=== PATIENT | female | born 1955 | race African-American/Black ===

== ENCOUNTER 2020-08-04 08:38 | Inpatient (IN) | payer MEDICARE, BC ==
[~2020-08-04] VITALS: Ht 162.6 cm; Wt 68.0 kg
[2020-08-04 08:49] VITALS: BP 137/62
[2020-08-04] MEDS ORDERED: ONDANSETRON PF 4 MG/2 ML VIAL. IVP PRN (10:30)
[2020-08-04] MEDS: IV NORMAL SALINE 1000ML BAG 1,000 ML IV SCH ×2 (10:30→23:13)
--- NOTE | 2020-08-04 10:38 | HP ---
ADMIT DATE: 08/04/2020 HISTORY OF PRESENT ILLNESS: The patient is a 65-year-old -[place] female patient, who presented to the Emergency Room with complaint of pain mostly in the right lower quadrant that started last Wednesday, sharp in nature, relatively constant. Denied any nausea or vomiting. Did have bowel movement just before she arrived to the Emergency Room. Denied any chills, rigors or fever. Has never had any complaint like this before. She denied any dysuria, frequency, or hematuria and she was extensively investigated in the Emergency Room of [facility] and has had lab work, which included a CBC and CMP, urinalysis was essentially unremarkable; however, CT scan of the abdomen and pelvis showed that the patient has dilatation and stasis at the distal small bowel at the lower abdomen leading up to the ileocecal junction. No discrete transition point is evident. Findings are suggestive of low-grade small bowel obstruction. Apparently, her appendix seems to be normal; however, her liver, gallbladder, spleen, pancreas, adrenal glands and left kidney is unremarkable. She has diffuse irregular wall cystic density of 16 units, 2 cm fatty umbilical abdominal wall hernia, scattered colonic diverticulosis. Therefore, the patient was transferred to [facility], kept n.p.o. and consulted the Surgical team for further evaluation and treatment. PAST MEDICAL HISTORY: Significant for hypertension. PAST SURGICAL HISTORY: Significant for total abdominal hysterectomy and bilateral salpingo-oophorectomy. 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 ALLERGIES: No known drug allergies. MEDICATIONS: She is currently on no medication. FAMILY HISTORY: Her sister at the age of 70 in the alf due to COVID-19 infection. Her brother at age of 40 because of massive myocardial infarction. Both parents in early 50s. Her mother because of ovarian cancer. Does not know the cause of of her father. SOCIAL HISTORY: She is , has 2 sons. She never smoked. Does not drink alcohol or use any recreational drugs. She is retired after working for 38 years for the [employer]. REVIEW OF SYSTEMS: As per history of present illness. PHYSICAL EXAMINATION: GENERAL: On arrival to the Emergency Room, she looked well and was clearly in no apparent respiratory distress, slightly pale, but no jaundice, cyanosis or thyromegaly. No jugular venous distention. No lower limb edema. VITAL SIGNS: Her heart rate was 65, blood pressure was 166/89. Her temperature was 98.2, respiratory rate was 20, and oxygen saturation was 99% on room air. HEAD, EYES, EARS, NOSE AND THROAT: Showed normocephalic, atraumatic. NECK: Supple. HEART: Normal first and second heart sounds. No gallop, rub or murmur. CHEST: Clear to auscultation. No crepitation or rhonchi. ABDOMEN: Slightly distended, soft with tenderness mostly in the right lower quadrant. NEUROLOGIC: She was awake, alert, responding appropriately. All cranial nerves intact. EXTREMITIES: She moves extremities without difficulty. LABORATORY WORK: Showed that her white cell count was 3700; hemoglobin 12.9; hematocrit 38; MCV 83; and platelet count of 128,000. Serum sodium was 138, potassium 3.7, chloride 100, bicarbonate 25, anion gap of 17, BUN of 27, creatinine 0.9, estimated GFR was 86 mL per minute. Her glucose was 97, calcium was 9.3. Her total bilirubin, AST, ALT, alkaline phosphatase were normal. Total protein 7.1, albumin was 3.8. The patient was given IV morphine, started on IV antibiotic and was transferred to [facility], kept n.p.o., continued on IV fluids, IV pain management and antiemetic. We will consult the Surgical team. FOREIGN HUNT MD DR: RADHA/caron JOB#: [id number] / [id number]
[2020-08-04 10:42] VITALS: BP 144/64
[2020-08-04] MEDS: MORPHINE SULFATE 4 MG/ML VIAL. IV PRN ×2 (13:53→23:18)
--- NOTE | 2020-08-04 14:16 | PDOC2 ---
CONSULT Date of Consult Date of Consult DATE: 08/04/20 TIME: 14:12 Reason for Consult Reason for Consult: SBO Referring Physician Referring Physician: Dr. Ceron Identification/Chief Complaint Chief Complaint abd pain Source Source: Chart review, Patient History of Present Illness Reason for Visit: 65 yo F with c/o abd pain, causing insomnia. She came in for medical care and received pain meds. She is seen in hospital room and reports doing well. She denies N/V or abd pain. No flatus or stools. No previous similar symptoms and reports normal frequent stools secondary to fiber. She does not have an NGT. Past Medical History Cardiovascular: HTN Past Surgical History Past Surgical History: Hysterectomy, Other (lymph node biopsy) Family History Family History: No Significant Social History No ALCOHOL: none Current Medications Current Medications Current Medications Morphine Sulfate (Morphine Sulfate) 4 mg Q4H PRN IV PAIN Last administered on 08/04/20at 13:53; Start 08/04/20 at 10:30 Ondansetron HCl (Zofran) 4 mg Q4H PRN IVP NAUSEA/VOMITING; Start 08/04/20 at 10:30 Sodium Chloride 1,000 ml @ 100 mls/hr Q10H IV Last administered on 08/04/20at 10:30; Start 08/04/20 at 10:30 Allergies Allergies: Coded Allergies: No Known Drug Allergies (Unverified , 08/04/20) Physical Exam General: Alert, Oriented X3, Cooperative, No acute distress HEENT: Atraumatic Lungs: Normal air movement Abdomen: Soft, No tenderness Extremities: No clubbing, No cyanosis Neuro: Normal speech, Sensation intact Psych/Mental Status: Mental status NL, Mood NL Vitals VITALS Vital Signs Date Time Temp Pulse Resp B/P (MAP) Pulse Ox O2 Delivery O2 Flow Rate FiO2 08/04/20 13:53 16 Room Air 08/04/20 10:42 98.3 66 144/64 (90) 98 98.[address] c/w SBO Assessment/Plan Assessment/Plan SBO, appears to be resolving will maintain bowel rest and check KUB in AM. Thanks for consult! MANJINDER THOMASON MD Aug 04, 2020 14:16
[2020-08-04 14:27] VITALS: BP 136/63
[2020-08-04 19:00] VITALS: BP 140/68
[2020-08-04 23:12] VITALS: BP 140/65
[2020-08-05 03:12] VITALS: BP 138/66
[2020-08-05 07:29] VITALS: BP 146/68
[2020-08-05 07:41] LABS: HEMATOCRIT 35.3 % (36.0-47.0); HEMOGLOBIN 11.5 g/dL (12.0-15.5); RED BLOOD COUNT 4.31 x10^6/uL (3.50-5.40); WHITE BLOOD COUNT 2.8 x10^3/uL (4.0-11.0)
[2020-08-05 08:04] LABS: ALBUMIN 3.2 g/dL (3.4-5.0); CALCIUM 8.7 mg/dL (8.5-10.1); CREATININE 0.7 mg/dL (0.6-1.0); GFR 101.3; POTASSIUM 3.9 mmol/L (3.5-5.1); TOTAL BILIRUBIN 0.8 mg/dL (0.2-1.0); TOTAL PROTEIN 6.5 g/dL (6.4-8.2)
[2020-08-05] MEDS: IV NORMAL SALINE 1000ML BAG 1,000 ML IV SCH ×2 (08:44→16:23)
--- NOTE | 2020-08-05 09:58 | NUR ---
SW following. Discussed with RN, pt from home alone, room air, NPO, gets around fine. Bowel rest - obstruction appears to be resolving. RN advised no SW needs at this time. SW will continue to follow.
[2020-08-05 10:44] VITALS: BP 164/66
--- NOTE | 2020-08-05 10:56 | PN ---
DATE: 08/05/2020 SUBJECTIVE: The patient is resting, slightly propped up in bed, in no apparent distress. She is awake, alert, complaining of pain in the right lower quadrant that she rated about 4/10 in severity. She did have an episode of some nausea, but no vomiting. OBJECTIVE: GENERAL: When I examined her, she looked well and was clearly in no apparent respiratory distress. No pallor, jaundice, cyanosis or thyromegaly. No jugular venous distention. No lower limb edema. VITAL SIGNS: Her heart rate was 65, blood pressure was 146/68, temperature was 98.3, respiratory rate was 18 and oxygen saturation was 98%. HEAD, EYES, EARS, NOSE, AND THROAT: Showed normocephalic, atraumatic. NECK: Supple. HEART: Showed normal first and second heart sounds. No gallop or murmur. CHEST: Clear to auscultation. No crepitation or rhonchi. ABDOMEN: Distended. Tenderness mostly in the right lower quadrant. There is no guarding or rigidity. No organomegaly. All hernial orifice intact. Bowel sounds normal. NEUROLOGIC: She was grossly intact. Her intake and output are incompletely recorded. LABORATORY DATA: Her lab work this morning showed a white cell count of 2800; hemoglobin 11.5; hematocrit 35; MCV 82 and platelet count of 115,000. Serum sodium was 142, potassium 3.9, chloride 106, bicarbonate 28, anion gap of 8, BUN 13, creatinine 0.7, estimated GFR was 101, glucose 77, calcium was 8.7. Total bilirubin, AST, ALT, alkaline phosphatase were normal. Total protein 6.5, albumin was 3.2. ASSESSMENT: Small bowel obstruction, apparently resolving. She has had the KUB done, the result of which is still pending at the time of this dictation. FOREIGN HUNT MD DR: RADHA/caron JOB#: [id number] / [id number]
--- NOTE | 2020-08-05 11:36 | PDOC ---
[facility] 08/05/20 1136: SURGICAL PROGRESS NOTE DATE: 08/05/20 TIME: 11:35 Subjective right flank pain, is improved but still there no n/v no flatus Vital Signs Vital Signs Date Time Temp Pulse Resp B/P (MAP) Pulse Ox O2 Delivery O2 Flow Rate FiO2 08/05/20 10:44 98.4 59 18 164/66 (98) 98 Room Air 98.4 I&O Intake and Output 08/05/20 07:00 Intake Total 3073 ml Balance 3073 ml Intake IV Total 3073 ml # Voids 1 General: Alert, Oriented X3, Cooperative Abdomen: Soft, Other (mild ttp rlq) Labs Laboratory Tests Test 08/05/20 06:30 White Blood Count 2.8 x10^3/uL (4.0-11.0) Red Blood Count 4.31 x10^6/uL (3.50-5.40) Hemoglobin 11.5 g/dL (12.0-15.5) Hematocrit 35.3 % (36.0-47.0) Mean Corpuscular Volume 82 fL (79-100) Mean Corpuscular Hemoglobin 27 pg (25-35) Mean Corpuscular Hemoglobin Concent 33 g/dL (31-37) Red Cell Distribution Width 16.0 % (11.5-14.5) Platelet Count 115 x10^3/uL (140-400) Sodium Level 142 mmol/L (136-145) Potassium Level 3.9 mmol/L (3.5-5.1) Chloride Level 106 mmol/L (98-107) Carbon Dioxide Level 28 mmol/L (21-32) Anion Gap 8 (6-14) Blood Urea Nitrogen 13 mg/dL (7-20) Creatinine 0.7 mg/dL (0.6-1.0) Estimated GFR (Cockcroft-Gault) 101.3 BUN/Creatinine Ratio 19 (6-20) Glucose Level 77 mg/dL (70-99) Calcium Level 8.7 mg/dL (8.5-10.1) Total Bilirubin 0.8 mg/dL (0.2-1.0) Aspartate Amino Transf (AST/SGOT) 16 U/L (15-37) Alanine Aminotransferase (ALT/SGPT) 31 U/L (14-59) Alkaline Phosphatase 87 U/L (46-116) Total Protein 6.5 g/dL (6.4-8.2) Albumin 3.2 g/dL (3.4-5.0) Albumin/Globulin Ratio 1.0 (1.0-1.7) Laboratory Tests Test 08/05/20 06:30 White Blood Count 2.8 x10^3/uL (4.0-11.0) Red Blood Count 4.31 x10^6/uL (3.50-5.40) Hemoglobin 11.5 g/dL (12.0-15.5) Hematocrit 35.3 % (36.0-47.0) Mean Corpuscular Volume 82 fL (79-100) Mean Corpuscular Hemoglobin 27 pg (25-35) Mean Corpuscular Hemoglobin Concent 33 g/dL (31-37) Red Cell Distribution Width 16.0 % (11.5-14.5) Platelet Count 115 x10^3/uL (140-400) Sodium Level 142 mmol/L (136-145) Potassium Level 3.9 mmol/L (3.5-5.1) Chloride Level 106 mmol/L (98-107) Carbon Dioxide Level 28 mmol/L (21-32) Anion Gap 8 (6-14) Blood Urea Nitrogen 13 mg/dL (7-20) Creatinine 0.7 mg/dL (0.6-1.0) Estimated GFR (Cockcroft-Gault) 101.3 BUN/Creatinine Ratio 19 (6-20) Glucose Level 77 mg/dL (70-99) Calcium Level 8.7 mg/dL (8.5-10.1) Total Bilirubin 0.8 mg/dL (0.2-1.0) Aspartate Amino Transf (AST/SGOT) 16 U/L (15-37) Alanine Aminotransferase (ALT/SGPT) 31 U/L (14-59) Alkaline Phosphatase 87 U/L (46-116) Total Protein 6.5 g/dL (6.4-8.2) Albumin 3.2 g/dL (3.4-5.0) Albumin/Globulin Ratio 1.0 (1.0-1.7) Assessment/Plan sbo await imaging Justicifation of Admission Dx: Justifications for Admission: Justification of Admission Dx: Yes Comments: sbo MANJINDER THOMASON MD 08/05/20 1718: SURGICAL PROGRESS NOTE Assessment/Plan Pt seen and examined. Agree with Ms. Price's note Pt feels better, some right flank pain no N/V, no flatus or stool KUB with no SBO, some constipation will ADAT and start laxatives. Possible d/c in AM if continued improvement. KATHERINE PRICE APRN Aug 05, 2020 11:36 MANJINDER THOMASON MD Aug 05, 2020 17:18
[2020-08-05] MEDS: MORPHINE SULFATE 4 MG/ML VIAL. IV PRN (12:47)
--- NOTE | 2020-08-05 13:51 | RAD ---
XR ABDOMEN 2V INDICATION: Reason: SBO / Spl. Instructions: / History: . COMPARISON: CT 08/04/2019. TECHNIQUE: Supine and upright views of the abdomen were obtained. FINDINGS: No gaseous dilatation of small bowel. No free air. Lower chest demonstrates no acute abnormality. No acute osseous abnormality. IMPRESSION: No gaseous dilatation of small bowel. Moderate colonic stool burden. Electronically signed by: Jovany Torres MD (08/05/2020 1:49 PM) [facility]
[2020-08-05 14:52] VITALS: BP 161/63
[2020-08-05] MEDS ORDERED: SENNOSIDES/DOCUSATE 8.6/50MG TABLET. PO PRN (17:15)
[2020-08-05 19:00] VITALS: BP 161/69
[2020-08-05 23:30] VITALS: BP 144/69
[2020-08-06] MEDS: IV NORMAL SALINE 1000ML BAG 1,000 ML IV SCH ×2 (02:30→06:57)
[2020-08-06 03:00] VITALS: BP 160/74
[2020-08-06 07:00] VITALS: BP 182/73
--- NOTE | 2020-08-06 08:40 | PDOC ---
SURGICAL PROGRESS NOTE DATE: 08/06/20 TIME: 08:39 Subjective feeling better after couple hard stools this AM tolerating diet Vital Signs Vital Signs Date Time Temp Pulse Resp B/P (MAP) Pulse Ox O2 Delivery O2 Flow Rate FiO2 08/06/20 07:50 Room Air 08/06/20 07:00 98.1 73 16 182/73 (109) 98 98.1 I&O Intake and Output 08/06/20 07:00 Intake Total 460 ml Output Total 0 ml Balance 460 ml Intake Oral 460 ml Output Urine Total 0 ml General: Alert, Oriented X3, Cooperative Abdomen: Soft, No tenderness Labs Laboratory Tests Test 08/05/20 06:30 White Blood Count 2.8 x10^3/uL (4.0-11.0) Red Blood Count 4.31 x10^6/uL (3.50-5.40) Hemoglobin 11.5 g/dL (12.0-15.5) Hematocrit 35.3 % (36.0-47.0) Mean Corpuscular Volume 82 fL (79-100) Mean Corpuscular Hemoglobin 27 pg (25-35) Mean Corpuscular Hemoglobin Concent 33 g/dL (31-37) Red Cell Distribution Width 16.0 % (11.5-14.5) Platelet Count 115 x10^3/uL (140-400) Sodium Level 142 mmol/L (136-145) Potassium Level 3.9 mmol/L (3.5-5.1) Chloride Level 106 mmol/L (98-107) Carbon Dioxide Level 28 mmol/L (21-32) Anion Gap 8 (6-14) Blood Urea Nitrogen 13 mg/dL (7-20) Creatinine 0.7 mg/dL (0.6-1.0) Estimated GFR (Cockcroft-Gault) 101.3 BUN/Creatinine Ratio 19 (6-20) Glucose Level 77 mg/dL (70-99) Calcium Level 8.7 mg/dL (8.5-10.1) Total Bilirubin 0.8 mg/dL (0.2-1.0) Aspartate Amino Transf (AST/SGOT) 16 U/L (15-37) Alanine Aminotransferase (ALT/SGPT) 31 U/L (14-59) Alkaline Phosphatase 87 U/L (46-116) Total Protein 6.5 g/dL (6.4-8.2) Albumin 3.2 g/dL (3.4-5.0) Albumin/Globulin Ratio 1.0 (1.0-1.7) Problem List improving, would continue laxatives work toward dc home soon Justicifation of Admission Dx: Justifications for Admission: Justification of Admission Dx: Yes KATHERINE PRICE APRN Aug 06, 2020 08:40
[2020-08-06] MEDS ORDERED: DOCU-109 PO (08:48)
--- NOTE | 2020-08-06 08:59 | DS ---
DATE OF DISCHARGE: 08/06/2020 HOSPITAL COURSE: The patient is sitting comfortably in her chair, in no apparent distress. She denied any further abdominal pain. She is tolerating her diet without any problem. She denied any nausea or vomiting. Her KUB showed no evidence of gaseous dilatation of small bowel. Moderate colonic stool burden. PHYSICAL EXAMINATION: GENERAL: On examining her, she looked well and was clearly in no apparent respiratory distress. No pallor, jaundice, cyanosis or thyromegaly. No jugular venous distention. No lower limb edema. VITAL SIGNS: Her heart rate was 73, blood pressure was 182/73, temperature was 98.1, respiratory rate was 16, and oxygen saturation was 98%. The rest of clinical exam is stable. LABORATORY DATA: Her lab works are all within normal range except the low platelets of 115,000 and also has leukopenia. DISCHARGE MEDICATIONS: The patient was discharged home on Colace 100 mg twice a day. FINAL DISCHARGE DIAGNOSES: Small bowel obstruction, resolved. Other medical problems include hypertension, thrombocytopenia, and leukopenia. FOREIGN HUNT MD DR: RADHA/caron JOB#: [id number] / [id number]
--- NOTE | 2020-08-06 10:24 | NUR ---
SS following up with discharge planning. SS reviewed pt chart and discussed with pt RN. Pt is currently on room air. Pt on full liquid diet and advancing as tolerated. Discharge order on the chart for home with self care.
--- NOTE | 2020-08-06 10:30 | NUR ---
Discharge Note: FAVIO MOORE Discharge instructions and discharge home medications reviewed with Patient and a copy given. All questions have been answered and understanding verbalized. The following instructions and handouts were given: information about medication, follow up appointment, diet, activity, etc. Discontinued lines and drains: IV line in right AC removed, catheter tip intact. Patient discharged to home with self care with family member, patient ambulated to discharge vehicle.
== END 2020-08-06 10:30 | disposition home or self-care (01) | DRG 390 ==
LOC: 4 NORTH 08:38
PROVIDERS: ADMIT Internal Medicine; ATTEND Internal Medicine
DX: K56.609 Unspecified intestinal obstruction, unspecified as to partial versus complete obstruction (principal); K57.30 Diverticulosis of large intestine without perforation or abscess without bleeding; D69.6 Thrombocytopenia, unspecified; I10 Essential (primary) hypertension; D72.819 Decreased white blood cell count, unspecified; Z80.41 Family history of malignant neoplasm of ovary; Z90.710 Acquired absence of both cervix and uterus
CPT/HCPCS: 36415; 74021; 80053; 85027; J2270; J7030; G0378